=== PATIENT | male | born 1990 | race Caucasian/White ===

== ENCOUNTER 2016-08-06 19:48 | Emergency (ER) | payer OTHER ==
[~2016-08-06] VITALS: Ht 185.4 cm; Wt 154.9 kg
[2016-08-07] MEDS ORDERED: KEFLEX500 MG PO (00:43)
[2016-08-07 01:39] VITALS: BP 187/116
== END 2016-08-07 01:43 | disposition home or self-care (01) ==
LOC: EME 19:48
DX: L03.116 Cellulitis of left lower limb (principal); Z87.891 Personal history of nicotine dependence
CPT/HCPCS: 93971; 99281; 99284